=== PATIENT | male | born 1990 | race Asian ===

== ENCOUNTER 2020-02-25 00:04 | Emergency (ER) | payer SELFPAY ==
[2020-02-25 00:27] VITALS: BP 99/62; PULSE 102; RESP 16; TEMP 36.7; O2SAT 97; BMI 20.9
== END 2020-02-25 03:26 | disposition left against medical advice (07) ==
LOC: HO.ED 03:26
PROVIDERS: Emergency Provider Internal Medicine
DX: H57.10 Ocular pain, unspecified eye (principal)
CPT/HCPCS: 99281; 99282

== ENCOUNTER 2023-04-11 07:46 | Emergency (ER) | payer MEDICAID, SELFPAY ==
[2023-04-11 07:50] VITALS: BP 134/80; PULSE 76; RESP 16; TEMP 36.6; O2SAT 96; BMI 26.2
--- NOTE | 2023-04-11 08:08 | ED.GENADULT ---
HPI - General Adult General Chief complaint: General Medical Stated complaint: Infection (?) on neck Time Seen by Provider: 04/11/23 08:06 Source: patient Mode of arrival: ambulatory Limitations: no limitations History of Present Illness HPI narrative: 33-year-old male presents with concerns that a tattoo to the left side of his neck maybe getting infected. Patient got down to at a reputable place 10 days ago. Reports redness and a little bit of swelling. Reports the overlying area in his neck feels sore however is able to move his neck without difficulty. Denies fevers, chills, numbness, tingling, headache, vision changes, chest pain and shortness of breath. No changes in voice or trouble controlling secretions Related Data Previous Rx's Medication Instructions Recorded cephalexin 500 mg tablet 500 mg PO Q6H 10 days #40 tabs 04/11/23 Allergies Allergy/AdvReac Type Severity Reaction Status Date / Time acetaminophen [From TYLENOL] Allergy Intermediate NAUSEA & Verified 04/11/23 07:50 VOMITING PMF Past Medical History Attestation statement: The following information was validated with the patient. Source: old records reviewed and nursing notes reviewed Medical History No known health problems Physical Exam ED Vital Signs: Vital Signs - 24 hr 04/11/23 07:50 Temperature 97.9 F Pulse Rate 76 Respiratory Rate 16 Blood Pressure 134/80 Pulse Oximetry 96 Oxygen Delivery Method Room Air BMI result Body Mass Index 26.2 vss Appearance: Alert.? Oriented X3.? No acute distress.? Head: Normocephalic, atraumatic, no step-offs or deformities Eyes: Pupils equal, round and reactive to light.? Neck: Normal inspection.? Neck supple.?+ tattoo to left lateral neck w/ very small area of cellulitis. No palpable abscess. no streaking. Speaking in full sentences controlling secretions well. CVS: Normal heart rate and rhythm.? Pulses normal.? Respiratory: No respiratory distress.? Breath sounds normal.? Abdomen: Soft and nontender.? Skin: Skin warm and dry.? Normal skin color.? Normal skin turgor.? Extremities: No lower extremity edema.? No calf ttp. 5/5 strength to bilateral upper and lower extremities Neuro: Oriented X 3.? No motor deficit.? No sensory deficit. CN 2-12 intact Medical Decision Making Medical Decision Making MDM Narrative: 33 year old male presents w/ concerns his tattoo is infected tattoo to left lateral neck w/ very small area of cellulitis. No palpable abscess. no streaking. Speaking in full sentences controlling secretions well. History and physical exam concerning for cellulitis and possibly developing abscess. No signs of necrotizing infection. No signs of airway compromise. No meningeal signs or signs of Francisco's Plan at this time will discharge patient home with Keflex and advised to place warm compresses to affected area. Differential Diagnosis Differential Diagnoses: The differential diagnosis associated with the presentation includes History and physical exam concerning for cellulitis and possibly developing abscess. No signs of necrotizing infection. No signs of airway compromise. No meningeal signs or signs of Francisco's Admission/Observation Consideration of admission/observation: Escalation of care including admission/observation considered Possible Tests considered The following testing was considered but not selected: No signs of airway compromise. Speaking in full sentences controlling secretions well no signs of necrotizing infection therefore no indication for imaging. Critical Care Time Critical Care Time Critical Care Time: No Discharge Plan Discharge Clinical Impression: Cellulitis Patient Disposition: Home, Self-Care Instructions: Cellulitis (ED), Warm Compress or Soak (ED) Additional Instructions: Take your medications as prescribed. If you were prescribed antibiotics today, it is important that you take your medication to their entirety, do not skip any doses, do not finish them early. Follow-up with your primary care provider this week. Return to the emergency department with new or worsening symptoms. Such as fevers, chills, chest pain, shortness of breath, nausea, vomiting, dizziness, headache, vision changes, lethargy In case of emergency call 911 Prescriptions: New cephalexin 500 mg tablet 500 mg PO Q6H 10 Days Qty: 40 0RF Referrals: Aviva Juan MD [Primary Care Provider] - 2 days Stand Alone Forms: Work/School Release
== END 2023-04-11 08:26 | disposition home or self-care (01) ==
PROVIDERS: Emergency Provider Emergency Medicine; PCP Family Medicine
DX: L03.221 Cellulitis of neck (principal)
CPT/HCPCS: 99282; 99283

== ENCOUNTER 2023-09-17 08:31 | Emergency (ER) | payer OTHER, SELFPAY ==
[2023-09-17 08:36] VITALS: BP 113/85; PULSE 97; RESP 16; TEMP 36.7; O2SAT 97; BMI 26.8
--- OUTSIDE RECORDS SUMMARY | 2023-09-17 08:50 | XMS_ITS | Continuity of Care Document ---
Author Organization [facility] Address [address] [place] [address]- Care Team Providers Care Ceo And President Name Role Phone Not on Staff, PCP Primary Care Physician Unavail able [place] [facility] [place] [facility] [address] [place] [address]- Discharge Disposition: A-D/C Home Attending Physician: Arlette Montanez MD Admitting Physician: Arlette Montanez MD Referring Physician: Not on Staff, Referring MD Allergies, Adverse Reactions, Alerts Substance Reaction Severity Status NKA Active Medications melatonin 3 mg oral tablet 2 tablet = 6 mg, By Mouth, Daily at bedtime, for 30 days, # 60 tablet, 1 Refills, Acute 06/20/20 11:52:00 EDT, 04/21/20 11:52:00 EST, Tablet, [facility]- [address] #, Partial fill upon patient request if the prescription is for a schedule II opi... Start Date: 04/21/20 Stop Date: 06/20/20 Status: Ordered Vital Signs Most recent to oldest [Reference Range]: 1 2 3 Height 168 cm (04/21/20 11:52 AM) 168 cm (04/20/20 1:22 PM) 168 cm (04/19/20 3:55 PM) Weight 62.1 kg (04/19/20 3:55 PM) Oxygen Saturation [94-100 %] 97 % (04/21/20 11:52 AM) 96 % (04/20/20 1:22 PM) 100 % (04/19/20 3:55 PM) Pulse Rate [55-90 bpm] 85 bpm (04/21/20 11:52 AM) 92 bpm *H* (04/20/20 1:22 PM) 76 bpm (04/19/20 3:55 PM) Body Mass Index [18.5-24.99] 22 (04/19/20 3:55 PM) Blood Pressure [90-138/55-84 mm Hg] 120/79mm Hg (04/21/20 11:52 AM) 109/75mm Hg (04/20/20 1:22 PM) 112/77mm Hg (04/19/20 3:55 PM) Respiratory Rate [16-30 br/min] 16 br/min (04/21/20 11:52 AM) 16 br/min (04/21/20 11:01 AM) 18 br/min (04/20/20 7:23 PM) Temperature [96.8-100.4 DegF] 97.5 DegF (04/19/20 3:55 PM) Mode of Delivery (Oxygen) Room air (04/21/20 11:52 AM) Room air (04/20/20 1:22 PM) Room air (04/19/20 3:55 PM) Blood pressure sites Arm, right (04/19/20 3:55 PM) Temperature Route Femoral (04/19/20 3:55 PM) Dry Weight 62.1 kg (04/19/20 3:55 PM) Weight Obtained Via Standing scale (04/19/20 3:55 PM) Dry Weight Obtained Via Standing scale (04/19/20 3:55 PM) Sensory deficits None (04/19/20 3:55 PM)
--- OUTSIDE RECORDS SUMMARY | 2023-09-17 08:50 | XMS_ITS | Continuity of Care Document ---
Author Organization [facility] Address [address] [place] [address]- Care Team Providers Care Environmental Restoration Planner Name Role Phone Not on Staff, PCP Primary Care Physician Unavail able [place] [facility] [place]21 [facility] [address] [place] [address]- Attending Physician: Clifford KNOWLES, Erendira Bird Referring Physician: Not on Staff, Referring MD Allergies, Adverse Reactions, Alerts No Known Allergies Medications traZODone 50 mg oral tablet 50 mg, 1, tablet, By Mouth, Daily at bedtime, PRN, # 30 tablet, Refills 0, Tot. Refills 0, Maintenance, Insomnia, 04/30/20 10:48:00 EST, Route to Pharmacy Electronically, [facility]/pharmacy #[id number], Partial fill upon patient request if the prescription is for... Start Date: 04/30/20 Stop Date: 05/30/20 Status: Ordered Vital Signs Most recent to oldest [Reference Range]: 1 Height 167.64 cm (10/28/21 4:29 PM) Oxygen Saturation [94-100 %] 99 % (10/28/21 4:29 PM) Pulse Rate [55-90 bpm] 78 bpm (10/28/21 4:29 PM) Blood Pressure [90-138/55-84 mm Hg] 118/ 79mm Hg (10/28/21 4:29 PM) Respiratory Rate [16-30 br/min] 20 br/mi n (10/28/21 4:29 PM) Temperature [96.8-100.4 DegF] 97.9 DegF (10/28/21 4:29 PM) Mode of Delivery (Oxygen) Room air (10/28/21 4:29 PM) Blood pressure sites Arm, left (10/28/21 4:29 PM) Temperature Route Temporal (10/28/21 4:29 PM) Care Team Personnel Name: Not on Staff, PCP
--- OUTSIDE RECORDS SUMMARY | 2023-09-17 08:50 | XMS_ITS | Continuity of Care Document ---
Author Organization [facility] Address [address] [place] [address]- Care Team Providers Care Lecturer Of Portuguese Name Role Phone Not on Staff, PCP Primary Care Physician Unavail able [place] [facility] [place]20 [facility] [address] [place] [address]- Discharge Disposition: A-D/C Home Attending Physician: Arlette Montanez MD Admitting Physician: Arlette Montanez MD Referring Physician: Not on Staff, Referring MD Allergies, Adverse Reactions, Alerts Substance Reaction Severity Status NKA Active Medications Ibuprofen Tablet 400 mg, Tablet, By Mouth, Every 6 hours, PRN for Pain , Mild, Minor headache, up to 3x/24 hours. Donot give if patient is on Twin or Aspirin, Routine, 04/28/20 14:39:00 EST Start Date: 04/28/20 Stop Date: 04/30/20 Status: Discontinued traZODone 50 mg oral tablet 50 mg, 1, tablet, By Mouth, Daily at bedtime, PRN, # 30 tablet, Refills 0, Tot. Refills 0, Maintenance, Insomnia, 04/30/20 10:48:00 EST, Route to Pharmacy Electronically, [facility]/pharmacy #[id number], Partial fill upon patient request if the prescription is for... Start Date: 04/30/20 Stop Date: 05/30/20 Status: Ordered Vital Signs Most recent to oldest [Reference Range]: 1 2 3 Height 167.64 cm (04/30/20 8:37 AM) 167.64 cm (04/29/20 6:09 PM) 167.64 cm (04/28/20 4:15 PM) Weight 63.9 kg (04/28/20 2:52 PM) Oxygen Saturation [94-100 %] 99 % (04/30/20 8:37 AM) 100 % (04/29/20 6:09 PM) 100 % (04/28/20 4:15 PM) Pulse Rate [55-90 bpm] 95 bpm *H* (04/30/20 8:37 AM) 85 bpm (04/29/20 6:09 PM) 91 bpm *H* (04/28/20 4:15 PM) Body Mass Index [18.5-24.99] 22.74 (04/28/20 2:52 PM) Blood Pressure [90-138/55-84 mm Hg] 107/60mm Hg (04/30/20 8:37 AM) 121/91mm Hg (04/29/20 6:09 PM) 113/78mm Hg (04/28/20 4:15 PM) Respiratory Rate [16-30 br/min] 18 br/min (04/30/20 8:37 AM) 18 br/min (04/29/20 7:04 PM) 18 br/min (04/29/20 6:09 PM) Temperature [96.8-100.4 DegF] 97.1 DegF (04/30/20 8:37 AM) 97.7 DegF (04/29/20 6:09 PM) 97.5 DegF (04/28/20 4:15 PM) Mode of Delivery (Oxygen) Room air (04/30/20 8:37 AM) Room air (04/29/20 6:09 PM) Room air (04/28/20 4:15 PM) Blood pressure sites Arm, right (04/30/20 8:37 AM) Arm, left (04/29/20 6:09 PM) Arm, left (04/28/20 4:15 PM) Temperature Route Oral (04/30/20 8:37 AM) Temporal (04/29/20 6:09 PM) Temporal (04/28/20 4:15 PM) Dry Weight 63.9 kg (04/28/20 2:52 PM) Sensory deficits None (04/28/20 2:52 PM)
--- OUTSIDE RECORDS SUMMARY | 2023-09-17 08:50 | XMS_ITS | Continuity of Care Document ---
Author Organization [facility] Address [address] [place] [address]- Care Team Providers Care Newspaper Library Manager Name Role Phone Not on Staff, PCP Primary Care Physician Unavail able Encounter [facility] [place] Date(s): 10/28/21 - 11/27/21 [facility] [address] [place], [place] [address] Attending Physician: Payton Darby Admitting Physician: Payton Darby Referring Physician: AdmtrPayton Allergies, Adverse Reactions, Alerts No Known Allergies Medications traZODone 50 mg oral tablet 50 mg, 1, tablet, By Mouth, Daily at bedtime, PRN, # 30 tablet, Refills 0, Tot. Refills 0, Maintenance, Insomnia, 04/30/20 10:48:00 EST, Route to Pharmacy Electronically, [facility]/pharmacy #[id number], Partial fill upon patient request if the prescription is for... Start Date: 04/30/20 Stop Date: 05/30/20 Status: Ordered Care Team Personnel Name: Not on Staff, PCP
--- NOTE | 2023-09-17 09:17 | ED.DENTAL ---
HPI - Dental/Oral General Chief complaint: Dental/Oral Stated complaint: dental pain Time Seen by Provider: 09/17/23 08:59 Source: patient Mode of arrival: ambulatory Limitations: no limitations History of Present Illness ED Provider: Liu CROSS Narrative: Patient is a 33-year-old male presenting to the emergency department with complaint of left sided jaw pain for the past week. States he was recently treated with a course of amoxicillin at detox, but symptoms did not improve. Has known fractured molar to left lower jaw. Complains of ongoing gingival pain. Does not currently have a dentist. Denies any difficulty swallowing, dyspnea, fevers/chills. Denies sore throat or ear pain. MD Complaint: tooth pain Location: Tooth # (17) Onset (ago): week(s) Duration: constant Severity: severe Relieving factors: nothing Context: history of dental caries and poor dental care Associated symptoms: gum swelling Treatment prior to arrival: other Related Data Previous Rx's ?Medication ?Instructions ?Recorded cephalexin 500 mg tablet 500 mg PO Q6H 10 days #40 tabs 04/11/23 clindamycin HCl 150 mg capsule 450 mg (3 x 150 mg) PO TID 7 days 09/17/23 #63 caps Allergies Allergy/AdvReac Type Severity Reaction Status Date / Time acetaminophen [From TYLENOL] Allergy Intermediate NAUSEA & Verified 09/17/23 08:36 VOMITING onion AdvReac Stomach Verified 09/17/23 08:36 Upset Review of Systems Review of Systems: As per HPI. Yes all other systems are reviewed and are negative Constitutional: Constitutional: Reports as per HPI [facility] Past Medical History Medical History No known health problems Social History Social History Advance Directives: No Advance Directives Information Provided: No Physical Exam Vital Signs: Vital Signs: Last Vital Signs Temp 98.0 F 09/17/23 08:36 Pulse 97 09/17/23 08:36 Resp 16 09/17/23 08:36 BP 113/85 09/17/23 08:36 Pulse Ox 97 09/17/23 08:36 O2 Del Method Room Air 09/17/23 08:36 BMI result Body Mass Index 26.8 Vital signs have been reviewed and appear to be correct. Blood pressure normal. Heart rate normal. Respiratory rate normal. Temperature normal. Oxygen saturation normal. Const: General: cooperative, healthy appearing and no acute distress Orientation/consciousness: oriented to person, oriented to place, oriented to time and patient oriented x3 Limitations: no limitations HEENT: Head: Yes normocephalic and Yes atraumatic Ears: external ears normal General nose exam: Normal external nose present Face and sinus: Yes face symmetric Mouth: lip normal, tongue normal, oropharynx normal, moist mucous membranes, no audible dysphonia, no drooling and No restricted motion Teeth and gingiva: caries, gingiva abnormal edematous (with erythema surrounding tooth #17, no discharge/drainage) and tender (around tooth #17); without any purulent discharge and poor dentition Throat: Yes uvula midline and No uvular edema Eyes: Pupils: Equal, round and reactive pupils present Neck: Neck: Yes normal visual inspection and Yes supple Resp: Effort & Inspection: normal respiratory effort and able to speak in complete sentences Auscultation: clear to auscultation bilaterally Cardio: Rate: regular rate Rhythm: regular rhythm Heart sounds: S1 normal heart sound present and S2 normal heart sound present GI: Palpation (GI): Soft to palpation and nontender Auscultation: normoactive bowel sounds : General: Yes no CVA tenderness Back/Spine/Pelvis: Back: no CVA tenderness Skin: General skin exam: elasticity normal and turgor normal Neuro: General: oriented to person, oriented to place, oriented to time, patient oriented x3, moves all extremities, no focal motor deficits and CN's II-XI intact bilaterally Cranial nerves: Yes Equal, round and reactive pupils present Cognition (Neuro): normal cognition Extrem: General: Yes full ROM, Yes no pedal edema and Yes no calf tenderness Psych: Mental Status: mental status grossly normal Affect: normal affect Thought process: Normal thought process present Medical Decision Making Medical Decision Making MDM Narrative: Patient is a 33-year-old male presenting to the emergency department with complaint of left sided jaw pain for the past week. On exam patient is awake, A+Ox3, VS WNL, afebrile, normal neurological exam without focal deficits, physical exam findings as above. Given reported symptoms and physical exam findings, initial differential includes dental/gingival infection, dental abscess, fractured tooth. No evidence of abscess on physical exam. Will treat with course of clindamycin and advised patient to use probiotic as well. Will provide patient with list of dental clinics. Return precautions discussed. Patient verbalized understanding of and agreement with plan. Differential Diagnosis Differential Diagnoses: The differential diagnosis associated with the presentation includes (As per MDM.) External Record Review External record reviewed: Inpatient record, Office record and Outpatient record Prescription Management I considered prescription management with: Antibiotic Discharge Plan Discharge Clinical Impression: Dental infection Patient Disposition: Home, Self-Care Instructions: Dental Abscess (ED), Toothache (ED), Tooth Extraction (DC) Additional Instructions: You were evaluated in the emergency department today for complaint of dental pain. You are being treated for a dental infection with antibiotics. Please complete the full course of antibiotics as prescribed even if your symptoms improve. We also recommend taking a probiotic with this medication, but you should take it a few hours apart from the antibiotics. IT IS IMPORTANT THAT YOU FOLLOW UP WITH A DENTIST to schedule follow up care. We recommend that you take 600 mg of ibuprofen or 650 mg Tylenol every 6 hours as needed for pain. If necessary, you can alternate these medications every 3 hours. For example, at 9:00 a.m. take Tylenol, then at noon take ibuprofen, then at 3:00 p.m. take Tylenol, etc.. You can also gargle with warm salt water several times daily. Return to the emergency department if you develop worsening pain, swelling, difficulty swallowing, difficulty breathing, fever, or any other concerning symptoms. Prescriptions: New clindamycin HCl 150 mg capsule 450 mg PO TID 7 Days Qty: 63 0RF No Action cephalexin 500 mg tablet 500 mg PO Q6H 10 Days Qty: 40 0RF Print Language: Spanish
[2023-09-17 09:39] VITALS: BP 113/85; PULSE 97; RESP 16; TEMP 36.7; O2SAT 97
== END 2023-09-17 09:43 | disposition home or self-care (01) ==
PROVIDERS: Emergency Provider Emergency Medicine; PCP Family Medicine
DX: K08.9 Disorder of teeth and supporting structures, unspecified (principal); K08.89 Other specified disorders of teeth and supporting structures
CPT/HCPCS: 99282; 99283